=== PATIENT | female | born 1970 | race Caucasian/White ===

== ENCOUNTER 2017-07-30 10:07 | Emergency (ER) | payer BC ==
[~2017-07-30] VITALS: Ht 160 cm; Wt 68.0 kg
[~2017-07-30 10:07] MED LIST: ATIVAN1 MG PO; BYSTOLIC10 MG PO
[2017-07-30] MEDS ORDERED: IBUPROFEN400 MG PO (10:25)
[2017-07-30] MEDS ORDERED: EFFEXOR XR 3737.5 MG PO (10:25)
[2017-07-30] MEDS ORDERED: PREMPRO 0.45-11 EACH PO (10:25)
[2017-07-30] MEDS ORDERED: FUROSEMIDE40 MG PO (10:25)
[2017-07-30] MEDS ORDERED: MIRAPEX0.25 MG PO (10:25)
[2017-07-30] MEDS ORDERED: ATENOLOL50 MG PO (10:25)
[2017-07-30] MEDS ORDERED: QUETIAPINE FUM100 MG PO (10:25)
[2017-07-30] MEDS ORDERED: SODIUM CHLORIDE FLUSH 10 ML SYR INJ PRN (10:30)
[2017-07-30 10:42] LABS: CLARITY,URINE SL CLOUDY (CLEAR); COLOR,URINE YELLOW (YELLOW)
[2017-07-30 10:43] LABS: BILIRUBIN,URINE NEGATIVE (NEGATIVE); KETONES,URINE NEGATIVE (NEGATIVE); LEUKOCYTE ESTERASE ,URINE NEGATIVE (NEGATIVE); NITRITE,URINE NEGATIVE (NEGATIVE); PROTEIN,URINE DIPSTICK NEGATIVE (NEGATIVE); URINE UROBILINOGEN 0.2 mg/dL (0.2 - 1)
[2017-07-30 10:59] LABS: BACTERIA,URINE RARE /HPF; EPITHELIAL CELLS,URINE RARE /LPF
[2017-07-30 11:08] LABS: BASOPHILS # (AUTO) 0.1 (0.0-0.1); BASOPHILS % 0.6 % (0.0-1.0); EOSINOPHILS % 0.2 % (0.0-6.0); HEMATOCRIT 37.6 % (34.2-44.1); HEMOGLOBIN 12.8 g/dL (12.0-16.0); LYMPHOCYTES # (AUTO) 2.2 (1.0-3.2); LYMPHOCYTES % 21.1 % (18.0-39.1); MEAN CORPUSCULAR HEMOGLOBIN 31.5 pg (28-32); MEAN CORPUSCULAR VOLUME 92.6 fL (81-99); MONOCYTES # (AUTO) 0.9 (0.2-0.8); MONOCYTES % 8.7 % (4.4-11.3); NEUTROPHILS % 68.4 % (38.7-80.0); PLATELET COUNT 409 x10e3/uL (140-360); RED BLOOD COUNT 4.06 x10e6/uL (3.6-5.1); RED CELL DISTRIBUTION WIDTH 14.5 % (11.7-14.4)
--- NOTE | 2017-07-30 11:09 | Diagnostic Imaging Report ---
PROCEDURE: A single AP view of the chest. COMPARISON: None. INDICATIONS: ABDOMINAL PAIN, BLOODY DIARRHEA FINDINGS: Lines/tubes: None. Lungs: The lungs are well inflated and clear. There is no evidence of pneumonia or pulmonary edema. Pleura: There is no pleural effusion or pneumothorax. Heart and mediastinum: The heart and the mediastinum are unremarkable. Bones: No acute bony abnormality. IMPRESSION: 1. No acute cardiopulmonary disease. Dictated by: Jimmy Conte M.D. on 07/30/2017 at 11:11 Electronically approved by: Jimmy Conte M.D. on 07/30/2017 at 11:11
[2017-07-30 11:19] LABS: INR 0.98; PROTHROMBIN TIME 12.2 seconds (11.9-14.5)
[2017-07-30 11:20] LABS: PARTIAL THROMBOPLASTIN TIME 27.6 seconds (23.8-35.5)
[2017-07-30 11:29] LABS: ALANINE AMINOTRANSFERASE 22 IU/L (0-55); ALBUMIN 4.1 g/dL (3.5-5.0); ALBUMIN/GLOBULIN RATIO 1.4 (0.8-2.0); ALKALINE PHOSPHATASE 69 IU/L (40-150); ANION GAP 15.6 mmol/L (8-16); BLOOD UREA NITROGEN 9 mg/dL (7-26); BUN/CREATININE RATIO 11 (6-25); CALCIUM 9.4 mg/dL (8.4-10.2); CARBON DIOXIDE 23 mmol/L (22-29); CHLORIDE 103 mmol/L (98-107); CREATINE KINASE 133 IU/L (29-168); CREATININE, SERUM 0.81 mg/dL (0.57-1.11); EST GLOMERULAR FILTRATION RATE > 60 ML/MIN (60-); GLUCOSE 100 mg/dL (74-118); POTASSIUM 3.6 mmol/L (3.5-5.1); SODIUM 138 mmol/L (136-145)
[2017-07-30 11:35] LABS: PREGNANCY TEST, URINE NEGATIVE (NEGATIVE)
[2017-07-30] MEDS ORDERED: IOPAMIDOL 370 MG/ML 200 ML INFUS..BTL INJ ONE (12:43)
[2017-07-30] MEDS ORDERED: SODIUM CHLORIDE 0.9% 50ML 50 ML ONE (12:43)
--- NOTE | 2017-07-30 12:45 | Diagnostic Imaging Report ---
EXAM: CT Abdomen and Pelvis WITH contrast INDICATION: \S\concern for GI bleed, abd distention, black stool \[id number] \S\1204 COMPARISON: None. TECHNIQUE: Abdomen and pelvis were scanned utilizing a multidetector helical scanner from the lung base to the pubic symphysis after administration of IV contrast. Coronal and sagittal reformations were obtained. Routine protocol was performed. Scan was performed when during portal venous phase. IV CONTRAST: 100 mL of Isovue-370 ORAL CONTRAST: Water COMPLICATIONS: None RADIATION DOSE: Total DLP: 636.46 mGy*cm Estimated effective dose: (DLP x 0.015 x size factor) mSv CTDIvol has been reviewed. It is below the limits set by the Radiation Protocol Committee (RPC). FINDINGS: LINES and TUBES: None. LOWER THORAX: Unremarkable HEPATOBILIARY: Hepatomegaly with steatosis. No focal hepatic lesions. No biliary ductal dilation. GALLBLADDER: No radio-opaque stones or sludge. No wall thickening. SPLEEN: No splenomegaly. PANCREAS: No focal masses or ductal dilatation. ADRENALS: Bilateral adrenal nodules measuring 1.6 x 1.1 cm on the left side and 1.8 x 1.7 cm on the right side. KIDNEYS/URETERS: Kidneys enhance symmetrically. No hydronephrosis. No cystic or solid mass lesions. No stones. GI TRACT: No abnormal distention, wall thickening, or evidence of bowel obstruction. Appendix is normal. PELVIC ORGANS/BLADDER: Anterior body fibroid. 2.9 cm left ovarian cyst. Bladder is unremarkable. LYMPH NODES: No lymphadenopathy. VESSELS: Unremarkable. PERITONEUM / RETROPERITONEUM: No free air or fluid. BONES: Unremarkable. SOFT TISSUES: Unremarkable. IMPRESSION: 1. No acute inflammatory process in the abdomen/pelvis. 2. Enlarged steatotic liver. 3. Bilateral indeterminate adrenal nodules. Adrenal mass protocol CT can be obtained for characterization. Signed by: Dr. Jimmy Conte MD on 07/30/2017 12:41 PM
[2017-07-30] MEDS ORDERED: DONNATAL/LIDOCAINE/MAALOX 30 ML SUSP PO ONE (13:15)
[2017-07-30 13:43] VITALS: BP 139/94
[2017-08-05] MEDS ORDERED: PANTOPRAZOLE SO40 MG PO (14:32)
[2017-08-05] MEDS ORDERED: GABAPENTIN300 MG PO (14:32)
[2017-08-05] MEDS ORDERED: SEROQUEL25 MG PO (14:33)
[2017-08-05] MEDS ORDERED: SUCRALFATE1 GM PO (14:33)
[2017-08-05] MEDS ORDERED: ATORVASTATIN CA20 MG PO (14:34)
== END 2017-07-30 13:35 | disposition home or self-care (01) ==
LOC: ER 10:07
DX: R10.84 Generalized abdominal pain (principal); I10 Essential (primary) hypertension; G25.81 Restless legs syndrome; F32.9 Major depressive disorder, single episode, unspecified; F41.9 Anxiety disorder, unspecified; F17.210 Nicotine dependence, cigarettes, uncomplicated
CPT/HCPCS: 36415; 71045; 74177; 80053; 81001; 81025; 82270; 82550; 82553; 84484; 85025; 85610; 85730; 86850; 86900; 93005; 99284; Q9967

== ENCOUNTER → 2017-08-10 | Day surgery (SDC) | payer BC ==
[~2017-08-10] MED LIST changes: +ATENOLOL50 MG PO; +ATORVASTATIN CA20 MG PO; +EFFEXOR XR 3737.5 MG PO; +FENTANYL CITRATE/PF 100MCG/2 ML INJ ONE; +FUROSEMIDE40 MG PO; +GABAPENTIN300 MG PO; +HYOSCYAMINE SULFATE 0.5 MG/ML AMP ONE; +IBUPROFEN400 MG PO; +LIDOCAINE HCL 2% LOCAL INJ 5 ML SDV VIAL INJ ONE; +MIDAZOLAM HCL 2 MG/2 ML VIAL ONE; +MIRAPEX0.25 MG PO; +PANTOPRAZOLE SO40 MG PO; +PREMPRO 0.45-11 EACH PO; +PROPOFOL IV EMULSION 10 MG/ML 50 ML VIAL ONE; +QUETIAPINE FUM100 MG PO; +SEROQUEL25 MG PO; +SUCRALFATE1 GM PO
--- OUTSIDE RECORDS SUMMARY | 2017-08-10 11:39 | XMS REPORT ---
Author [facility] Address Unknown Phone Unavailable Care Team Providers Care Proposal Development Manager Name Role Phone RIVKA CHIU Unavailable Unavailable Problems This patient has no known problems. Allergies, Adverse Reactions, Alerts This patient has no known allergies or adverse reactions. Medications This patient has no known medications. Results Test Description Test Time Test Comments Text Results Atomic Results Result Comments CHEST SINGLE (PORTABLE) [place] [address] Patient Name: PHAM GONZALEZ MR #: [id number] : 1970 Age/Sex: 46/F Req #: [id number] Adm Physician: Ordered by: ALBA VALDES Report #: [id number] Location: ER Room/Bed: Procedure: [id number] DX/CHEST SINGLE (PORTABLE) Exam Date: 07/30/17 Exam Time: 1040 REPORT STATUS: Signed PROCEDURE: A single AP view of the chest. COMPARISON: None. INDICATIONS: ABDOMINAL PAIN, BLOODY DIARRHEA FINDINGS: Lines/tubes: None. Lungs: The lungs are well inflated and clear. There is no evidence of pneumonia or pulmonary edema. Pleura: There is no pleural effusion or pneumothorax. Heart and mediastinum: The heart and the mediastinum are unremarkable. Bones: No acute bony abnormality. IMPRESSION: 1. No acute cardiopulmonary disease. Dictated by: Jimmy Constantino M.D. on 07/30/2017 at 11:11 Electronically approved by: Jimmy Constantino M.D. on 07/30/2017 at 11:11 Dictated By: JIMMY CONSTANTINO MD 1111 Transcribed By: JULIO on 07/30/17 1111 COPY TO: ALBA VALDES CT ABDOMEN/PELVIS W [place] [address] Patient Name: PHAM GONZALEZ MR #: [id number] : 1970 Age/Sex: 46/F Req #: [id number] Adm Physician: Ordered by: ALBA VALDES Report #: [id number] Location: ER Room/Bed: Procedure: [id number] CT/CT ABDOMEN/PELVIS W Exam Date: 07/30/17 Exam Time: 1204 REPORT STATUS: Signed EXAM: CT Abdomen and Pelvis WITH contrast INDICATION: COMPARISON: None. TECHNIQUE: Abdomen and pelvis were scanned utilizing a multidetector helical scanner from the lung base to the pubic symphysis after administration of IV contrast. Coronal and sagittal reformations were obtained. Routine protocol was performed. Scan was performed when during portal venous phase. IV CONTRAST: 100 mL of Isovue-370 ORAL CONTRAST: Water COMPLICATIONS: None RADIATION DOSE: Total DLP: 636.46 mGy*cm Estimated effective dose: (DLP x 0.015 x size factor) mSv CTDIvol has been reviewed. It is below the limits set by the Radiation Protocol Committee (RPC). FINDINGS: LINES and TUBES: None. LOWER THORAX: Unremarkable HEPATOBILIARY: Hepatomegaly with steatosis. No focal hepatic lesions. No biliary ductal dilation. GALLBLADDER: No radio-opaque stones or sludge. No wall thickening. SPLEEN: No splenomegaly. PANCREAS: No focal masses or ductal dilatation. ADRENALS: Bilateral adrenal nodules measuring 1.6 x 1.1 cm on the left side and 1.8 x 1.7 cm on the right side. KIDNEYS/URETERS: Kidneys enhance symmetrically. No hydronephrosis. No cystic or solid mass lesions. No stones. GI TRACT: No abnormal distention, wall thickening, or evidence of bowel obstruction. Appendix is normal. PELVIC ORGANS/BLADDER: Anterior body fibroid. 2.9 cm left ovarian cyst. Bladder is unremarkable. LYMPH NODES: No lymphadenopathy. VESSELS: Unremarkable. PERITONEUM / RETROPERITONEUM: No free air or fluid. BONES: Unremarkable. SOFT TISSUES: Unremarkable. IMPRESSION: 1. No acute inflammatory process in the abdomen/pelvis. 2. Enlarged steatotic liver. 3. Bilateral indeterminate adrenal nodules. Adrenal mass protocol CT can be obtained for characterization. Signed by: Dr. Jimmy Constantino MD on 07/30/2017 12:41 PM Dictated By: JIMMY CONSTANTINO MD 1241 Transcribed By: MAYO on 07/30/17 1241 COPY TO: ALBA VALDES
--- OUTSIDE RECORDS SUMMARY | 2017-08-10 11:39 | XMS REPORT | Continuity of Care Document ---
Author Author [facility] Organization [facility] Address [address] [place] [place] [address] Phone Unavailable Care Team Providers Care Criminal Analyst Name Role Phone GIORGIO PARK DO PCP Insurance Providers Guarantor Deborah Gilliam Address [address] [place] [address] Email [email or web address] Policy Number [id number] Subscriber's Name Aimee Gilliam A Relationship 01 Group Number [id number] Group Name A [facility] Advance Directives Directive Response Recorded Date/Time Does the patient have an advance directive? No 03/29/14 10:34am If yes, is advance directive [facility]? No 03/29/14 10:34am If not on file with [facility] will patient provide a copy? No 03/29/14 10:34am Do you have a Directive to Physician? No 07/30/17 12:37pm Do you have a Medical Power of Chemist Instrumentation? No 07/30/17 12:37pm Do you have an out of hospital Do Not Resuscitate Order? No 07/30/17 12:37pm Do you have any special needs we should be aware of? No 07/30/17 12:37pm Do you have a support person here with you today? No 07/30/17 12:37pm Did patient receive Notice of Privacy Practices? Yes 07/30/17 12:37pm Did patient receive patient rights and responsibilities? Yes 07/30/17 12:37pm Problems No problem information available. Medications Current Home Medications Medication Dose Units Route Directions Days Qty Instructions Start Date Atenolol 50 Mg Tablet 50 Mg Oral Twice A Day Estrogen,Con/M-Progest Acet (Prempro 0.45-1.5 Mg Tablet) 1 Each Tablet 1 Tab Oral Daily Furosemide 40 Mg Tablet 20 Mg Oral Daily 30 Tab Ibuprofen 400 Mg Tablet 800 Mg Oral Twice A Day Lorazepam (Ativan) 1 Mg Tablet 2 Mg Oral Three Times A Day Pramipexole Di-Hcl (Mirapex) 0.25 Mg Tablet 0.5 Mg Oral Bedtime 30 Tab Quetiapine Fumarate 100 Mg Tablet 200 Mg Oral Bedtime 30 Tab Venlafaxine Hcl (Effexor Xr 37.5MG Capcr*) 37.5 Mg Capcr 75 Mg Oral Daily Past Home Medications Medication Directions Ordered Status Nebivolol Hcl (Bystolic) 10 Mg Tablet, 10 Mg Oral Twice A Day Discontinued Social History Smoking Status Start Date Stop Date Current every day smoker Hospital Discharge Instructions No hospital discharge instruction information available. Plan of Care Discharge Date 07/30/17 1:35pm Disposition HOME, SELF-CARE Condition at Discharge Stable Instructions/Education Provided Abdominal Pain - Adult GI Bleeding Forms Provided Work/School Excuse Prescriptions See Medication Section Referrals GIORGIO PARK DO Address: [address] [place] [id number] VIMAL FLORES MD Address: [address] [place] [phone] Additional Instructions/Education PLAN: 1) Discharged from ER to home. 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 Contact information for GI doctor given to patient. Please call today to make a follow up appointment for the first available opening. 2) Take protonix 40mg once a day. A thirty day supply of this medication will be prescribed. Ask your GI doctor about staying on this medication for a longer period of time. 3) Take Zofran 8mg ODT, dissolve one on tongue every 8 hours as needed for nausea or vomiting. 4) Take Tylenol as needed for pain. 5) Do not take ibuprofen, naproxen, aspirin until you have been evaluated by the preschool director. 6) Drink plenty of water. 7) Stop taking the pepto bismol and GasX. 8) Return to the ER if you have worsening pain, fever over 101, vomiting, worsening bleeding from rectum, dizziness or any other problems. Functional Status No functional status information available. Allergies, Adverse Reactions, Alerts No known allergies. Immunizations No immunization information available. Vital Signs Acute Vital Signs Vital Response Date/Time Pulse Pulse Rate (adult) 67 bpm (60 - 90) 07/30/2017 1:43pm Respiratory Rate 20 bpm (12 - 24) 07/30/2017 1:43pm Blood Pressure 139/94 mm Hg 07/30/2017 1:43pm Height 5 ft 3 in 07/30/2017 10:09am Weight 150 lb 07/30/2017 10:09am Body Mass Index 26.6 kg/m^2 07/30/2017 10:09am Results Laboratory Results Test Name Result Units Flags Reference Collection Date/Time Result Date/ Time Comments White Blood Count 10.22 x10e3/uL 4.8-10.8 07/30/2017 11:00am 2017 11:12am Red Blood Count 4.06 x10e6/uL 3.6-5.1 07/30/2017 11:00am 07/30/2017 11: 12am Hemoglobin 12.8 g/dL 12.0-16.0 07/30/2017 11:00am 07/30/2017 11:12am Hematocrit 37.6 % 34.2-44.1 07/30/2017 11:00am 07/30/2017 11:12am Mean Corpuscular Volume 92.6 fL 81-99 07/30/2017 11:00am 07/30/2017 11: 12am Mean Corpuscular Hemoglobin 31.5 pg 28-32 07/30/2017 11:00am 2017 11:12am Mean Corpuscular Hemoglobin Concent 34.0 g/dL 31-35 07/30/2017 11:00am 07/30/2017 11:12am Red Cell Distribution Width 14.5 % H 11.7-14.4 07/30/2017 11:00am 2017 11:12am Platelet Count 409 x10e3/uL H 140-360 07/30/2017 11:00am 07/30/2017 11: 12am Neutrophils (%) (Auto) 68.4 % 38.7-80.0 07/30/2017 11:00am 07/30/2017 11:12am Lymphocytes (%) (Auto) 21.1 % 18.0-39.1 07/30/2017 11:00am 07/30/2017 11:12am Monocytes (%) (Auto) 8.7 % 4.4-11.3 07/30/2017 11:00am 07/30/2017 11: 12am Eosinophils (%) (Auto) 0.2 % 0.0-6.0 07/30/2017 11:00am 07/30/2017 11: 12am Basophils (%) (Auto) 0.6 % 0.0-1.0 07/30/2017 11:00am 07/30/2017 11: 12am IM GRANULOCYTES % 1.0 % 0.0-1.0 07/30/2017 11:00am 07/30/2017 11:12am Neutrophils # (Auto) 7.0 H 2.1-6.9 07/30/2017 11:00am 07/30/2017 11: 12am Lymphocytes # (Auto) 2.2 1.0-3.2 07/30/2017 11:00am 07/30/2017 11: 12am Monocytes # (Auto) 0.9 H 0.2-0.8 07/30/2017 11:00am 07/30/2017 11: 12am Eosinophils # (Auto) 0.0 0.0-0.4 07/30/2017 11:00am 07/30/2017 11: 12am Basophils # (Auto) 0.1 0.0-0.1 07/30/2017 11:00am 07/30/2017 11:12am Absolute Immature Granulocyte (auto 0.10 x10e3/uL 0-0.1 07/30/2017 11: 00am 07/30/2017 11:12am Prothrombin Time 12.2 seconds 11.9-14.5 07/30/2017 11:00am 07/30/2017 11:21am Prothromb Time International Ratio 0.98 07/30/2017 11:00am 2017 11:21am Oral Anticoagulant Therapy INR Values: 1. Low Intensity Therapy 1.5 - 2.0 2. Moderate Intensity Therapy 2.0 - 3.0 3. High Intensity Therapy(1) 2.5 - 3.5 4. High Intensity Therapy(2) 3.0 - 4.0 5. Panic Value INR > 5.0 Activated Partial Thromboplast Time 27.6 seconds 23.8-35.5 07/30/2017 11 :00am 07/30/2017 11:21am Urine Color YELLOW YELLOW 07/30/2017 10:2007/30/2017 10:43am Urine Clarity SL CLOUDY CLEAR 07/30/2017 10:2007/30/2017 10:43am Urine Specific [place] 1.015 1.010-1.025 07/30/2017 10:202017 10:43am Urine pH 6 5 - 7 07/30/2017 10:20am 07/30/2017 10:43am Urine Leukocyte Esterase NEGATIVE NEGATIVE 07/30/2017 10:202017 10:43am Urine Nitrite NEGATIVE NEGATIVE 07/30/2017 10:20am 07/30/2017 10: 43am Urine Protein NEGATIVE NEGATIVE 07/30/2017 10:20am 07/30/2017 10: 43am Urine Glucose (UA) NEGATIVE NEGATIVE 07/30/2017 10:2007/30/2017 10 :43am Urine Ketones NEGATIVE NEGATIVE 07/30/2017 10:2007/30/2017 10: 43am Urine Urobilinogen 0.2 mg/dL 0.2 - 1 07/30/2017 10:2007/30/2017 10: 43am Urine Bilirubin NEGATIVE NEGATIVE 07/30/2017 10:2007/30/2017 10: 43am Urine Blood 3+ H NEGATIVE 07/30/2017 10:2007/30/2017 10:43am Urine WBC NONE /HPF 0-5 07/30/2017 10:2007/30/2017 10:59am Urine RBC 11-20 /HPF H 0-5 07/30/2017 10:2007/30/2017 10:59am Urine Bacteria RARE /HPF NONE 07/30/2017 10:20am 07/30/2017 10:59am Urine Epithelial Cells RARE /LPF NONE 07/30/2017 10:2007/30/2017 10: 59am Urine Test NEGATIVE NEGATIVE 07/30/2017 10:2007/30/2017 11:35am Sodium Level 138 mmol/L 136-145 07/30/2017 11:00am 07/30/2017 11:35am Potassium Level 3.6 mmol/L 3.5-5.1 07/30/2017 11:00am 07/30/2017 11: 35am Chloride Level 103 mmol/L 98-107 07/30/2017 11:00am 07/30/2017 11:35am Carbon Dioxide Level 23 mmol/L 22-29 07/30/2017 11:0007/30/2017 11: 35am Anion Gap 15.6 mmol/L 8-16 07/30/2017 11:00am 07/30/2017 11:35am Blood Urea Nitrogen 9 mg/dL 7-07/30/2017 11:0007/30/2017 11:35am Creatinine 0.81 mg/dL 0.57-1.11 07/30/2017 11:00am 07/30/2017 11:35am BUN/Creatinine Ratio 11 08-3007/30/2017 11:00am 07/30/2017 11:35am Estimat Glomerular Filtration Rate > 60 ML/MIN 60- 07/30/2017 11:00am 07/30/2017 11:35am Ranges were taken from the National Kidney Disease Education Program and the National Kidney Foundation literature. Reference ranges: 60 or greater: Normal 16-59 (for 3 consecutive months): Chronic kidney disease 15 or less: Kidney failure Glucose Level 100 mg/dL 74-118 07/30/2017 11:00am 07/30/2017 11:35am Calcium Level 9.4 mg/dL 8.4-10.2 07/30/2017 11:0007/30/2017 11:35am Total Bilirubin 0.2 mg/dL 0.2-1.2 07/30/2017 11:0007/30/2017 11: 35am Aspartate Amino Transf (AST/SGOT) 19 IU/L 5-34 07/30/2017 11:00am 07/30 11:35am Alanine Aminotransferase (ALT/SGPT) 22 IU/L 0-55 07/30/2017 11:00am 11:35am Total Protein 7.1 g/dL 6.5-8.1 07/30/2017 11:00am 07/30/2017 11:35am Albumin 4.1 g/dL 3.5-5.0 07/30/2017 11:00am 07/30/2017 11:35am Globulin 3.0 g/dL 2.3-3.5 07/30/2017 11:00am 07/30/2017 11:35am Albumin/Globulin Ratio 1.4 0.8-2.0 07/30/2017 11:00am 07/30/2017 11: 35am Alkaline Phosphatase 69 IU/L 40-150 07/30/2017 11:00am 07/30/2017 11: 35am Creatine Kinase 133 IU/L 29-168 07/30/2017 11:00am 07/30/2017 11:35am Creatine Kinase MB 1.60 ng/mL 0-5.0 07/30/2017 11:00am 07/30/2017 11: 49am Troponin I 0.003 ng/mL 0-0.300 07/30/2017 11:00am 07/30/2017 11:49am Stool Occult Blood POSITIVE H NEGATIVE 07/30/2017 10:40am 07/30/2017 10:51am Procedures Procedure Status Date Provider(s) Computed tomography of abdomen and pelvis with contrast Active 07/30/17 ALBA VALDES Encounters Encounter Location Arrival/Admit Date Discharge/Depart Date Attending Provider Departed Emergency Room [facility] 07/30/17 10:07am 07/30 1:35pm RIVKA CHIU DO
--- NOTE | 2017-08-10 15:51 | Operative Report ---
DATE OF PROCEDURE: August 10, 2017 REFERRING PHYSICIAN: Dr. Anuj Park PROCEDURE PERFORMED: Esophagogastroduodenoscopy with biopsies and colonoscopy with polypectomy. INDICATIONS FOR ESOPHAGOGASTRODUODENOSCOPY: Upper abdominal pain. INDICATIONS FOR COLONOSCOPY: Change of bowel habits, hematochezia. MEDICATION: Patient was done under MAC. Please see anesthesiologist's note. PROCEDURE: With patient in the left lateral decubitus position, flexible fiberoptic Olympus gastroscope was introduced into the esophagus under direct visualization without any difficulty. There was some patchy erythema noted in distal esophagus. A minute tongue of velvety red mucosa was noted to extend proximally from the GE junction that was biopsied to rule out Fernandez's. The scope was then advanced with ease into the stomach. Mucosa overlying the antrum and the body revealed some diffuse erythema and low-grade to moderate edema, and biopsies were obtained and sent stain for H. pylori. The pylorus was of normal contour and shape. Was intubated with ease and the scope was advanced all the way to the 2nd portion of the duodenum. There were somewhat flattened folds in the proximal 2nd portion of the duodenum and biopsies were obtained to rule out sprue. Mucosa overlying the duodenal bulb appeared to be within normal limits. The scope was then withdrawn back into the stomach and retroflexed and mucosa overlying the fundus and cardia appeared to be within normal limits. The scope was then straightened out and was subsequently withdrawn. Patient tolerated the procedure well. IMPRESSION: 1. Distal esophagitis. 2. Rule out Fernandez's esophagus. 3. Gastritis biopsied. Biopsy sent to stain for H. pylori. 4. Rule out sprue. PLAN: Follow up histology. Increase Protonix to 40 mg 1 p.o. a.c. b.i.d. PROCEDURE: Patient was then turned around and after adequate lubrication of the anal canal a flexible fiberoptic Olympus colonoscope was inserted into the rectum with ease and advanced all the way to the cecum. An approximately 1.2 cm sessile lesion was noted in the cecum that was snared and polypectomy site was hemoclipped times 2 prophylactically. The mucosa overlying the ascending, the transverse and descending grossly appeared to be within normal limits. Two polyps were snared from the sigmoid colon and 1 polyp was hot biopsied from the rectum. The scope was then retroflexed into the distal rectum and small internal hemorrhoids were noted, none of which was actively bleeding. The scope was then straightened out. Was subsequently withdrawn. Patient tolerated procedure well. IMPRESSION 1. Cecal, sessile lesion approximately 1.2 cm in size snared and polypectomy site prophylactically hemoclipped x2. 2. Sigmoid colon polyps x2 snared. 3. Rectal polyp x1 hot biopsied. 4. Internal hemorrhoids, none actively bleeding. PLAN: Follow up histology. Initiate high-fiber low-fat diet. Initiate high-fiber supplement. Timing of followup colonoscopy pending pathology report. Job#: [id number] cc:ANUJ PARK, DO
== END | disposition home or self-care (01) ==
LOC: OR 11:36
PROVIDERS: ATTEND Internal Medicine Gastroenterology
DX: K29.70 Gastritis, unspecified, without bleeding (principal); D12.0 Benign neoplasm of cecum; K62.1 Rectal polyp; K21.0 Gastro-esophageal reflux disease with esophagitis; K59.00 Constipation, unspecified; K58.9 Irritable bowel syndrome, unspecified; K64.8 Other hemorrhoids; I10 Essential (primary) hypertension; R93.5 Abnormal findings on diagnostic imaging of other abdominal regions, including retroperitoneum; R16.0 Hepatomegaly, not elsewhere classified; K76.0 Fatty (change of) liver, not elsewhere classified; Z01.810 Encounter for preprocedural cardiovascular examination; F32.9 Major depressive disorder, single episode, unspecified; F41.9 Anxiety disorder, unspecified; Z68.30 Body mass index [BMI] 30.0-30.9, adult; Z83.79 Family history of other diseases of the digestive system
CPT/HCPCS: 43239; 45384; 45385; 81025; 93005; J1980; J2001; J2250; 44391

== ENCOUNTER → 2020-10-03 | Day surgery (SDC) | payer BC ==
[~2020-10-03] MED LIST changes: -HYOSCYAMINE SULFATE 0.5 MG/ML AMP ONE; +METOCLOPRAMIDE HCL 10 MG/2ML VIAL ONE; +POVIDONE IODINE 0.05% 0.05 % ML PO ONE; +PROPOFOL IV EMULSION 10 MG/ML 20 ML VIAL ONE; -PROPOFOL IV EMULSION 10 MG/ML 50 ML VIAL ONE
[2020-10-03 15:35] VITALS: BP 105/68
== END | disposition home or self-care (01) ==
LOC: OR 11:36
PROVIDERS: ATTEND Internal Medicine Gastroenterology
DX: K29.70 Gastritis, unspecified, without bleeding (principal); K59.00 Constipation, unspecified; K20.90 Esophagitis, unspecified without bleeding; K44.9 Diaphragmatic hernia without obstruction or gangrene; K58.9 Irritable bowel syndrome, unspecified; K64.8 Other hemorrhoids; I10 Essential (primary) hypertension; F41.9 Anxiety disorder, unspecified; F17.210 Nicotine dependence, cigarettes, uncomplicated; Z01.810 Encounter for preprocedural cardiovascular examination; Z01.812 Encounter for preprocedural laboratory examination; Z20.822 Contact with and (suspected) exposure to COVID-19
CPT/HCPCS: 43239; 45378; 81025; 93005; J2001; J2250; J2704; J2765; J3010; U0002